=== PATIENT | male | born 1970 | race Caucasian/White ===

== ENCOUNTER 2022-07-30 05:25 | Emergency (ER) | payer SELFPAY ==
[~2022-07-30] VITALS: Ht 175.3 cm; Wt 110.5 kg
[2022-07-30 05:37] VITALS: BP 139/88; PULSE 93; TEMP 98.1
[2022-07-30] MEDS ORDERED: CEPHALEXIN500 M1 PO (06:33)
== END 2022-07-30 06:54 | disposition home or self-care (01) ==
LOC: COL.ER 05:25
DX: S81.812A Laceration without foreign body, left lower leg, initial encounter (principal); F17.200 Nicotine dependence, unspecified, uncomplicated; Z23 Encounter for immunization; W26.0XXA Contact with knife, initial encounter